=== PATIENT | female | born 1985 | race Caucasian/White ===

== ENCOUNTER 2021-11-06 11:04 | Inpatient (IN) ==
[~2021-11-06 11:04] MED LIST: *HR* Propofol 200 MG/20 ML VIAL IVP ONE; *HR* Succinylcholine 200 MG/10 ML VIAL IVP ONE; Clindamycin 900 MG/50 ML 900 MG/50 ML IV.SOLN IVPB ONE; Famotidine 20 MG/2 ML VIAL IVP ONE; Metoclopramide 10 MG/2 ML VIAL IVP ONE; Ringers Solution, Lactated 1,000 ML ONE
[2021-11-06] MEDS ORDERED: Oxytocin 30 UNIT/503 ML BAG IVC ONE (11:14)
[2021-11-06] MEDS ORDERED: *HR* FentaNYL (PF) 100 MCG/2 ML VIAL ONE (11:14)
[2021-11-06] MEDS ORDERED: *HR* Rocuronium Bromide 50 MG/5 ML VIAL ONE (11:14)
[2021-11-06] MEDS ORDERED: Ringers Solution, Lactated 1,000 ML IVC SCH ×2 (11:15→14:38)
[2021-11-06] MEDS ORDERED: Ondansetron 4 MG/2 ML VIAL ONE (11:17)
[2021-11-06] MEDS ORDERED: Piperacillin/Tazobactam 3.375 GM in 0.9 % Sodium Chloride Mini Bag 100 ML IVPB ONE (11:31)
[2021-11-06] MEDS ORDERED: Ketorolac 30 MG/ML VIAL ONE (11:33)
[2021-11-06] MEDS ORDERED: Acetaminophen IV 1,000 MG/100 ML BAG IVPB ONE (11:34)
[2021-11-06 11:36] LABS: Basophils # 0.1 K/mcL (0.0-0.2); Basophils % 0.3 %; Eosinophils # 0.2 K/mcL (0.0-0.6); Eosinophils % 1.5 %; Hematocrit 33.3 % (35.3-44.9); Hemoglobin 11.1 g/dL (11.5-15.4); Immature Granulocytes % 0.7 % (0-4); Lymphocytes # 3.1 K/mcL (0.6-4.6); Lymphocytes % 19.7 %; Mean Corpuscular HGB Conc 33.3 g/dL (31.6-35.5); Mean Corpuscular Hemoglobin 29.4 pg (28.0-33.3); Mean Corpuscular Volume 88.3 fL (83.0-100.0); Mean Platelet Volume 9.6 fL (9.4-12.4); Monocytes # 1.3 K/mcL (0.0-1.3); Monocytes % 8.2 %; Neutrophils # 11.1 K/mcL (1.6-8.9); Platelet Count 342 K/mcL (140-400); Red Blood Count 3.77 M/mcL (3.82-4.97); Red Cell Distribution Width 13.4 % (11.5-14.5); Segmented Neutrophils % 69.6 %; White Blood Count 15.9 K/mcL (4.3-11.1)
[2021-11-06] MEDS ORDERED: GENTAMICIN IVPB ONE (11:41)
[2021-11-06] MEDS ORDERED: SODIUM CHLORIDE 0.9% IVPB ONE (11:41)
[2021-11-06 11:59] LABS: Creatinine,Urine 60 mg/dL; Protein/Creatinine Ratio,Urine 0.15 mg/mg (0.00-0.20)
[2021-11-06 12:08] LABS: Alanine Aminotransferase 14 Units/L (7-52); Aspartate Amino Transferase 25 Units/L (13-39); BUN/Creatinine Ratio 18 (6-26); Blood Urea Nitrogen 7 mg/dL (6-20); Lactate Dehydrogenase 218 Units/L (140-271); Uric Acid 4.4 mg/dL (2.3-7.6); eGFR For African Americans > 60 (> 60); eGFR For Non-African Americans > 60 (> 60)
[2021-11-06] MEDS ORDERED: *HR* Labetalol 20 MG/4 ML SYRINGE IVP PRN (12:20)
[2021-11-06] MEDS ORDERED: Ondansetron 4 MG/2 ML VIAL IVP PRN ×2 (12:20→14:38)
[2021-11-06] MEDS: *HR* HYDROmorphone PF 0.5 MG/0.5 ML SYRINGE IVP PRN ×4 (12:37→14:05)
[2021-11-06 13:51] LABS: Amphetamine Screen,Urine Negative ng/mL (Cutoff=1000); Barbiturate Screen,Urine Negative ng/mL (Cutoff=200); Benzodiazepines Screen,Urine Negative ng/mL (Cutoff=300); Cannabinoid Screen,Urine Negative ng/mL (Cutoff = 50); Cocaine Screen,Urine Negative ng/mL (Cutoff= 300); Opiate Screen,Urine Negative ng/mL (Cutoff=300); Phencyclidine Screen,Urine Negative ng/mL (Cutoff=25)
[2021-11-06] MEDS ORDERED: Dextrose 4 GM Chewable Tablets PO PRN ×2 (14:38)
[2021-11-06] MEDS ORDERED: Rho Immune Globulin 1,500 UNIT SYRINGE IM ONE (14:38)
[2021-11-06] MEDS ORDERED: Metoclopramide 10 MG/2 ML VIAL IVP PRN (14:38)
[2021-11-06] MEDS ORDERED: *HR* HYDROmorphone PCA *PREMADE* 20 MG/1MG/ML (20mL) PCA VIAL IVC PRN (14:38)
[2021-11-06] MEDS ORDERED: *HR* Dextrose 50 % in Water (Syg) 50 ML SYRINGE IVP PRN (14:38)
[2021-11-06] MEDS ORDERED: Oxytocin 30 UNIT/503 ML BAG IVC SCH (14:38)
[2021-11-06] MEDS ORDERED: D5% in Water 1,000 ML IVC PRN (14:38)
[2021-11-06] MEDS ORDERED: Clindamycin 900 MG/50 ML 900 MG/50 ML IV.SOLN IVPB SCH (16:00)
[2021-11-06] MEDS ORDERED: *HR* Metformin 500 MG TABLET PO SCH ×2 (17:00→21:00)
[2021-11-06] MEDS: *HR* OxyCODONE Immed Rel 5 MG TABLET PO PRN ×2 (17:02→20:56)
[2021-11-06] MEDS ORDERED: Insulin LISPRO 300 UNITS/3 ML VIAL SUBQ SCH (18:00)
[2021-11-06] MEDS: Acetaminophen 325 MG TABLET PO SCH (18:27)
[2021-11-06] MEDS: Ibuprofen 600 MG TABLET PO SCH (18:27)
[2021-11-06] MEDS: Insulin LISPRO 300 UNITS/3 ML VIAL SUBQ SCH ×2 (19:25→21:00)
[2021-11-06] MEDS: Simethicone 80 MG TAB.CHEW PO PRN (19:41)
[2021-11-06] MEDS: Clindamycin 900 MG/50 ML 900 MG/50 ML IV.SOLN IVPB SCH (19:43)
[2021-11-06] MEDS: *HR* Metformin 500 MG TABLET PO SCH (19:43)
[2021-11-06] MEDS: *HR* Enoxaparin 60 MG/0.6 ML SYRINGE SQ SCH (19:44)
[2021-11-06 23:09] VITALS: O2SAT 97
[2021-11-07] MEDS: Acetaminophen 325 MG TABLET PO SCH ×4 (00:19→20:08)
[2021-11-07] MEDS: Ibuprofen 600 MG TABLET PO SCH ×4 (00:19→20:08)
[2021-11-07] MEDS: *HR* OxyCODONE Immed Rel 5 MG TABLET PO PRN ×5 (03:56→22:40)
[2021-11-07] MEDS: Clindamycin 900 MG/50 ML 900 MG/50 ML IV.SOLN IVPB SCH ×2 (03:57→13:20)
[2021-11-07 04:41] LABS: Basophils # 0.1 K/mcL (0.0-0.2); Basophils % 0.3 %; Eosinophils # 0.2 K/mcL (0.0-0.6); Eosinophils % 0.8 %; Hematocrit 30.4 % (35.3-44.9); Hemoglobin 9.9 g/dL (11.5-15.4); Immature Granulocytes % 0.7 % (0-4); Lymphocytes # 3.7 K/mcL (0.6-4.6); Lymphocytes % 18.4 %; Mean Corpuscular HGB Conc 32.6 g/dL (31.6-35.5); Mean Corpuscular Hemoglobin 29.2 pg (28.0-33.3); Mean Corpuscular Volume 89.7 fL (83.0-100.0); Mean Platelet Volume 9.6 fL (9.4-12.4); Monocytes # 1.6 K/mcL (0.0-1.3); Neutrophils # 14.3 K/mcL (1.6-8.9); Platelet Count 290 K/mcL (140-400); Red Blood Count 3.39 M/mcL (3.82-4.97); Red Cell Distribution Width 13.5 % (11.5-14.5); Segmented Neutrophils % 71.8 %; White Blood Count 19.9 K/mcL (4.3-11.1)
[2021-11-07] MEDS: Insulin LISPRO 300 UNITS/3 ML VIAL SUBQ SCH ×3 (08:09→22:35)
[2021-11-07] MEDS ORDERED: atenoloL 25 MG TABLET PO SCH (09:00)
[2021-11-07] MEDS: *HR* Enoxaparin 60 MG/0.6 ML SYRINGE SQ SCH ×2 (09:05→20:10)
[2021-11-07] MEDS: Prenatal Vit/FA 1 EACH TABLET PO SCH (09:05)
[2021-11-07] MEDS: *HR* Metformin 500 MG TABLET PO SCH ×2 (09:05→20:09)
[2021-11-07] MEDS: Simethicone 80 MG TAB.CHEW PO PRN ×2 (09:10→20:07)
[2021-11-07] MEDS ORDERED: *HR* OxyCODONE Immed Rel 5 MG TABLET PO ONE (10:29)
[2021-11-07] MEDS: metroNIDAZOLE 500 MG TABLET PO SCH (20:08)
[2021-11-08] MEDS: *HR* OxyCODONE Immed Rel 5 MG TABLET PO PRN ×3 (02:17→12:18)
[2021-11-08] MEDS: Acetaminophen 325 MG TABLET PO SCH ×2 (02:17→08:48)
[2021-11-08] MEDS: Ibuprofen 600 MG TABLET PO SCH ×2 (02:17→08:49)
[2021-11-08 07:11] VITALS: BP 112/68; PULSE 89; TEMP 97.8
[2021-11-08] MEDS: *HR* Metformin 500 MG TABLET PO SCH (08:48)
[2021-11-08] MEDS: Prenatal Vit/FA 1 EACH TABLET PO SCH (08:49)
[2021-11-08] MEDS: *HR* Enoxaparin 60 MG/0.6 ML SYRINGE SQ SCH (08:49)
[2021-11-08] MEDS: metroNIDAZOLE 500 MG TABLET PO SCH (08:49)
== END 2021-11-08 12:23 | disposition home or self-care (01) | DRG 787 ==
LOC: 1NENULAB → 1NENUOBS 15:08
PROVIDERS: ADMIT Obstetrics & Gynecology; ATTEND Obstetrics & Gynecology